=== PATIENT | female | born 1990 | race Caucasian/White ===

== ENCOUNTER 2017-01-30 08:18 | Inpatient (IN) | payer BC ==
[~2017-01-30] VITALS: Ht 172.7 cm; Wt 96.1 kg
[2017-01-30] VITALS (16 sets, daily range): BP systolic 114–144; BP diastolic 59–78
[~2017-01-30 08:18] MED LIST: PRENATAL TABLE1 EAC3 PO
[2017-01-30 09:19] LABS: EOSINOPHIL (%) 0.5 % (0-5); HEMATOCRIT 36.1 % (36.0-46.0); IMMATURE GRANULOCYTE (%) 1.2 % (0.0-0.7); IMMATURE GRANULOCYTE COUNT 0.1 K/uL; INSTRUMENT ABS NEUTROPHIL CT 4.7 K/uL; LYMPHOCYTE COUNT 2.4 K/uL (1.0-2.8); MCH 30.1 PG (29.0-34.0); MCHC 34.3 G/DL (30.0-36.0); MCV 87.6 FL (83-99); MEAN PLAT.VOLUME 10.4 uM^3 (9.5-12.4); MONOCYTE (%) 10.4 % (3-12); MONOCYTE COUNT 0.8 K/uL (0-0.8); NEUTROPHIL (%) 58.3 % (45-76); NEUTROPHIL COUNT 4.7 K/uL (1.8-6.4); PLATELET COUNT 193 K/uL (156-360); RBC DIS.WIDTH-CV 12.8 % (11.8-14.6); RBC DIS.WIDTH-SD 40.3 % (39-53); RED BLOOD COUNT 4.12 M/uL (3.80-5.20)
[2017-01-30] MEDS ORDERED: MOTRIN800 MG PO (16:23)
[2017-01-30] MEDS ORDERED: PERCOCET 5/31 TABLET PO (16:23)
[2017-01-31] VITALS (8 sets, daily range): BP systolic 104–128; BP diastolic 51–69
[2017-01-31 06:44] LABS: EOSINOPHIL (%) 0 % (0-5); HEMATOCRIT 30.7 % (36.0-46.0); IMMATURE GRANULOCYTE (%) 0.9 % (0.0-0.7); IMMATURE GRANULOCYTE COUNT 0.1 K/uL; INSTRUMENT ABS NEUTROPHIL CT 12.5 K/uL; LYMPHOCYTE COUNT 1.1 K/uL (1.0-2.8); MCH 30.5 PG (29.0-34.0); MCHC 34.2 G/DL (30.0-36.0); MCV 89.2 FL (83-99); MONOCYTE (%) 9.2 % (3-12); MONOCYTE COUNT 1.4 K/uL (0-0.8); NEUTROPHIL (%) 82.5 % (45-76); NEUTROPHIL COUNT 12.5 K/uL (1.8-6.4); PLATELET COUNT 195 K/uL (156-360); RBC DIS.WIDTH-SD 42.4 % (39-53); RED BLOOD COUNT 3.44 M/uL (3.80-5.20); WHITE BLOOD COUNT 15.1 K/uL (4.1-10.2)
[2017-02-01 03:02] VITALS: BP 109/56
[2017-02-01 07:20] VITALS: BP 124/76
[2017-02-01 12:31] VITALS: BP 129/76
[2017-02-01 14:51] VITALS: BP 131/70
[2017-02-01 23:16] VITALS: BP 126/74
[2017-02-02 07:41] VITALS: BP 141/76
[2017-02-02 16:57] VITALS: BP 164/90
[2017-02-02 21:44] VITALS: BP 166/91
[2017-02-02 22:03] VITALS: BP 166/79
[2017-02-02 22:04] VITALS: BP 156/69
[2017-02-02 23:40] VITALS: BP 151/84
[2017-02-03 08:01] VITALS: BP 156/94
[2017-02-03 09:00] VITALS: BP 139/86
[2017-02-03] MEDS ORDERED: PROCARDIA XL30 MG PO (10:55)
[2017-02-03 17:16] VITALS: BP 123/73
[2017-02-03 23:40] VITALS: BP 134/77
== END 2017-02-03 23:45 | disposition home or self-care (01) | DRG 765 ==
LOC: LDRP-OP → 2WEST 08:20 → LDRP-OP 03-28 11:22
PROVIDERS: Nurse Practitioner; Obstetrics & Gynecology
DX: O62.1 Secondary uterine inertia (principal); O65.9 Obstructed labor due to maternal pelvic abnormality, unspecified; O60.14X0 Preterm labor third trimester with preterm delivery third trimester, not applicable or unspecified; O99.03 Anemia complicating the puerperium; D62 Acute posthemorrhagic anemia; O69.81X0 Labor and delivery complicated by cord around neck, without compression, not applicable or unspecified; O26.893 Other specified pregnancy related conditions, third trimester; Z67.41 Type O blood, Rh negative; Z3A.36 36 weeks gestation of pregnancy; Z37.0 Single live birth
CPT/HCPCS: 83030; 85025; 86870; 86900; 86901; 86905; 86920; C1755; J0690; J0702; J2175; J2250; J2270; J2274; J2405; J2540; J2590; J2790; J3010; J7120